=== PATIENT | female | born 1980 | race Caucasian/White ===

== ENCOUNTER 2016-08-10 18:19 | Inpatient (IN) | payer MEDICARE, MEDICAID ==
[~2016-08-10] VITALS: Ht 167.6 cm; Wt 157.0 kg
[~2016-08-10 18:19] MED LIST: ACET325T14 PO; ALPR0.25 PO; ASPI-621 PO; CARV12.543 PO; CARV25TA12 PO; FURO-92 PO; GLYB2.5T2 PO; GLYB5TAB3 PO; GUAI177L4 PO; HYDR-3240 PO; IBUP800T PO; LACT1CAP4 PO; LAMO150T3 PO; LISI40TA PO; PREN1TAB69 PO; SERT50TA PO; TOPI100T24 PO
[2016-08-10 19:40] VITALS: BP 146/93
[2016-08-10] MEDS ORDERED: LACTATED RINGERS 1,000 ML IV SCH (20:30)
[2016-08-10] MEDS: LACTATED RINGERS 1,000 ML IV SCH (20:30)
[2016-08-10] MEDS ORDERED: MIDAZOLAM 1 MG/ML, 2ML ONE (21:07)
[2016-08-10] MEDS ORDERED: FENTANYL PF 250 MCG/5ML ONE (21:07)
[2016-08-10] MEDS ORDERED: OXYTOCIN 10 UNITS/ML, 1ML ONE (21:29)
[2016-08-10] MEDS ORDERED: MISOPROSTOL 200 MCG TABLET ONE ×2 (21:29→23:04)
[2016-08-10] MEDS ORDERED: METHYLERGONOVINE 0.2 MG/ML IM ONE (21:30)
[2016-08-10] MEDS ORDERED: SILVER NITRATE STICK TP ONE ×2 (21:30→23:03)
[2016-08-10] MEDS ORDERED: LIDOCAINE 1%-EPI 1:100K, 50ML ONE (21:30)
[2016-08-10 21:34] LABS: HEMOGLOBIN 11.3 g/dL (11.7-16.4)
[2016-08-10 21:47] LABS: ASPARTATE AMINO TRANSFERASE 16 U/L (15-37); BLOOD UREA NITROGEN 13 mg/dL (7-18)
[2016-08-10] MEDS ORDERED: MEPERIDINE/PF 25MG/0.5ML IVPush PRN (22:30)
[2016-08-10] MEDS ORDERED: HYDROcodone/APAP 7.5-325MG/15ML UDC PO PRN (22:30)
[2016-08-10] MEDS ORDERED: hydrALAzine 20 MG/ML, 1ML IV PRN (22:30)
[2016-08-10] MEDS ORDERED: FENTANYL PF 100 MCG/2ML IV PRN (22:30)
[2016-08-10] MEDS ORDERED: OXYcodone 5 MG/5 ML ORAL.SOL UDC PO PRN (22:30)
[2016-08-10] MEDS ORDERED: MIDAZOLAM 1 MG/ML, 2ML IV PRN (22:30)
[2016-08-10] MEDS ORDERED: LABETALOL 5MG/ML, 20ML IV PRN (22:30)
[2016-08-10] MEDS ORDERED: ONDANSETRON 2MG/ML, 2ML IVPush PRN (22:30)
[2016-08-10] MEDS ORDERED: ACETAMINOPHEN 325 MG TABLET PO PRN (22:30)
[2016-08-10] MEDS ORDERED: KETOROLAC 30 MG/1 ML IV PRN (22:30)
[2016-08-10] MEDS ORDERED: HYDROmorphone 1 MG/ML, 1ML IV PRN (22:30)
[2016-08-10] MEDS ORDERED: EPHEDRINE 50 MG/ML, 1ML IVPush PRN (22:30)
[2016-08-10] MEDS ORDERED: PROMETHAZINE 25 MG/ML, 1ML IV PRN (22:30)
[2016-08-10] MEDS ORDERED: MISOPROSTOL 200 MCG TABLET VG ONE (23:06)
[2016-08-10] MEDS ORDERED: OXYcodone 5 MG/5 ML ORAL.SOL UDC ONE (23:30)
[2016-08-10] MEDS ORDERED: FENTANYL PF 100 MCG/2ML ONE (23:30)
[2016-08-11] MEDS ORDERED: ONDANSETRON 2MG/ML, 2ML IV PRN (00:30)
[2016-08-11] MEDS ORDERED: morphine SULFATE 10 MG/ML, 1ML IV PRN (00:30)
[2016-08-11] MEDS: LACTATED RINGERS 1,000 ML IV SCH ×3 (00:30→08:12)
[2016-08-11] MEDS: HYDROcodone/APAP 5/325 TABLET PO PRN ×2 (01:47→08:19)
[2016-08-11 03:09] VITALS: BP 147/62
[2016-08-11] MEDS ORDERED: HYDR-3240 PO (03:52)
[2016-08-11] MEDS ORDERED: NORE0.354 PO (03:57)
[2016-08-11] MEDS ORDERED: CARVEDILOL 25 MG TABLET PO SCH (06:00)
[2016-08-11 06:53] LABS: HEMOGLOBIN 11.4 g/dL (11.7-16.4)
[2016-08-11 08:40] VITALS: BP 133/80
[2016-08-11 10:31] VITALS: BP 134/72
== END 2016-08-11 10:20 | disposition home or self-care (01) | DRG 769 ==
LOC: 4NOR 19:44
PROVIDERS: ADMIT Student in an Organized Health Care Education/Training Program; ATTEND Student in an Organized Health Care Education/Training Program
PROC: 0UDB7ZZ Extraction of Endometrium, Via Natural or Artificial Opening (ICD-10-PCS; principal; 2016-08-11)
PROC: 10D17ZZ Extraction of Products of Conception, Retained, Via Natural or Artificial Opening (ICD-10-PCS; 2016-08-11)
DX: O72.2 Delayed and secondary postpartum hemorrhage (principal); Z68.43 Body mass index [BMI] 50.0-59.9, adult; I42.9 Cardiomyopathy, unspecified; N83.201 Unspecified ovarian cyst, right side; N83.202 Unspecified ovarian cyst, left side; N93.9 Abnormal uterine and vaginal bleeding, unspecified; I50.9 Heart failure, unspecified; F32.9 Major depressive disorder, single episode, unspecified; I11.0 Hypertensive heart disease with heart failure; E66.01 Morbid (severe) obesity due to excess calories; Z87.891 Personal history of nicotine dependence; Z82.49 Family history of ischemic heart disease and other diseases of the circulatory system; Z83.3 Family history of diabetes mellitus; Z82.3 Family history of stroke; Z88.6 Allergy status to analgesic agent; Z86.32 Personal history of gestational diabetes
CPT/HCPCS: 36415; 80053; 84703; 85025; 85610; 86850; 86900; 88305; J1100; J2250; J2405; J2704; J3010; J0330; J2210; J2590

== ENCOUNTER 2016-08-16 16:11 | Inpatient (IN) | payer MEDICARE, MEDICAID ==
[~2016-08-16] VITALS: Ht 167.6 cm; Wt 154.3 kg
[~2016-08-16 16:11] MED LIST changes: +NORE0.354 PO
[2016-08-16] MEDS ORDERED: SODIUM CHLORIDE 0.9% 1,000ML IVBOLUS ONE ×2 (16:30→19:00)
[2016-08-16] MEDS ORDERED: SODIUM CHLORIDE FLUSH 10ML SYR IVF ONE (16:30)
[2016-08-16] MEDS ORDERED: ONDANSETRON 2MG/ML, 2ML IVPush ONE (16:30)
[2016-08-16] MEDS ORDERED: MORPHINE SULFATE 4 MG/ML, 1ML ONE ×2 (16:58→18:08)
[2016-08-16] MEDS ORDERED: ONDANSETRON 2MG/ML, 2ML ONE (16:58)
[2016-08-16 17:00] LABS: BLOOD UREA NITROGEN 12 mg/dL (7-18)
[2016-08-16] MEDS: MORPHINE SULFATE 4 MG/ML, 1ML IVPush PRN ×2 (17:00→18:41)
[2016-08-16 17:06] LABS: ASPARTATE AMINO TRANSFERASE 15 U/L (15-37)
[2016-08-16] MEDS ORDERED: MORPHINE SULFATE 4 MG/ML, 1ML IVPush PRN (18:00)
[2016-08-16] MEDS ORDERED: CEFTRIAXONE PMX 1GM/50ML 50 ML IVPB ONE (19:00)
[2016-08-16] MEDS ORDERED: CEFTRIAXONE PMX 1GM/50ML 50 ML ONE (19:19)
[2016-08-16 23:00] VITALS: BP 92/56
[2016-08-16 23:13] VITALS: BP 92/56
[2016-08-16] MEDS ORDERED: ACETAMINOPHEN 325 MG TABLET PO PRN (23:30)
[2016-08-16] MEDS ORDERED: ONDANSETRON ODT 4 MG PO PRN (23:30)
[2016-08-16] MEDS ORDERED: BISACODYL 10 MG SUPP PR PRN (23:30)
[2016-08-16] MEDS ORDERED: ENOXAPARIN 40 MG/0.4 ML SQ SCH (23:30)
[2016-08-16] MEDS ORDERED: LABETALOL 5MG/ML, 20ML IV PRN (23:30)
[2016-08-16] MEDS ORDERED: POLYETHYLENE GLYCOL 17 GM PACKET PO PRN (23:30)
[2016-08-16] MEDS ORDERED: TRAZODONE 50MG TABLET PO PRN (23:30)
[2016-08-16] MEDS: SODIUM CHLORIDE 0.9% 1,000 ML IV SCH (23:56)
[2016-08-16] MEDS: CEFTRIAXONE PMX 2GM/50ML 50 ML IV SCH (23:56)
[2016-08-16] MEDS: HYDROcodone/APAP 5/325 TABLET PO PRN (23:57)
[2016-08-16] MEDS: CARVEDILOL 25 MG TABLET PO SCH (23:57)
[2016-08-17 01:12] VITALS: BP 90/50
[2016-08-17 05:55] LABS: BLOOD UREA NITROGEN 12 mg/dL (7-18)
[2016-08-17 05:59] LABS: ASPARTATE AMINO TRANSFERASE 12 U/L (15-37)
[2016-08-17] MEDS: SODIUM CHLORIDE 0.9% 1,000 ML IV SCH ×3 (07:07→23:24)
[2016-08-17 08:52] VITALS: BP 107/71
[2016-08-17] MEDS: CARVEDILOL 25 MG TABLET PO SCH ×2 (08:57→20:54)
[2016-08-17] MEDS: HYDROcodone/APAP 5/325 TABLET PO PRN ×4 (09:06→22:07)
[2016-08-17] MEDS: ENOXAPARIN 30 MG/0.3 ML SQ SCH ×2 (13:25→23:25)
[2016-08-17 13:56] VITALS: BP 100/68
[2016-08-17 20:40] VITALS: BP 105/71
[2016-08-17] MEDS: CEFTRIAXONE PMX 2GM/50ML 50 ML IV SCH (23:25)
[2016-08-18 02:12] VITALS: BP 122/76
[2016-08-18 06:47] VITALS: BP 113/65
[2016-08-18] MEDS: HYDROcodone/APAP 5/325 TABLET PO PRN ×3 (08:01→21:44)
[2016-08-18] MEDS: CARVEDILOL 25 MG TABLET PO SCH ×2 (08:02→21:43)
[2016-08-18] MEDS: SODIUM CHLORIDE 0.9% 1,000 ML IV SCH ×2 (08:02→21:46)
[2016-08-18] MEDS: KETOROLAC 30 MG/1 ML IVPush PRN ×2 (12:21→19:40)
[2016-08-18] MEDS: ENOXAPARIN 30 MG/0.3 ML SQ SCH ×2 (12:21→23:47)
[2016-08-18 14:38] VITALS: BP 103/57
[2016-08-18 19:55] VITALS: BP 113/69
[2016-08-18] MEDS: DOCUSATE 100 MG CAPSULE PO PRN (21:44)
[2016-08-18] MEDS: CEFTRIAXONE PMX 2GM/50ML 50 ML IV SCH (23:47)
[2016-08-19 01:42] VITALS: BP 101/59
[2016-08-19] MEDS: HYDROcodone/APAP 5/325 TABLET PO PRN ×2 (03:01→12:39)
[2016-08-19 07:40] VITALS: BP 120/80
[2016-08-19] MEDS: DOCUSATE 100 MG CAPSULE PO PRN (07:59)
[2016-08-19] MEDS: CARVEDILOL 25 MG TABLET PO SCH (07:59)
[2016-08-19 12:20] VITALS: BP_SYST 127; BP_SYST 133; BP_DIAS 79; BP_DIAS 82
[2016-08-19] MEDS: ENOXAPARIN 30 MG/0.3 ML SQ SCH (12:40)
[2016-08-19] MEDS ORDERED: HYDR-3240 PO (12:46)
[2016-08-19] MEDS ORDERED: CEFD300C2 PO (12:46)
[2016-08-19 15:50] VITALS: BP 123/77
[2016-08-19] MEDS ORDERED: SODIUM CHLORIDE 0.9% 1,000 ML IV SCH (23:06)
== END 2016-08-19 16:30 | disposition home or self-care (01) | DRG 872 ==
LOC: ED 18:04 → EDIP 20:55 → 4NOR 22:58 → DCLOUNGE 08-19 16:03
PROVIDERS: ADMIT Internal Medicine; ATTEND Internal Medicine
PROC: 0T9B70Z Drainage of Bladder with Drainage Device, Via Natural or Artificial Opening (ICD-10-PCS; principal; 2016-08-16)
DX: A41.9 Sepsis, unspecified organism (principal); N12 Tubulo-interstitial nephritis, not specified as acute or chronic; I50.22 Chronic systolic (congestive) heart failure; Z68.43 Body mass index [BMI] 50.0-59.9, adult; E66.01 Morbid (severe) obesity due to excess calories; D25.9 Leiomyoma of uterus, unspecified; F32.9 Major depressive disorder, single episode, unspecified; I11.0 Hypertensive heart disease with heart failure; B96.20 Unspecified Escherichia coli [E. coli] as the cause of diseases classified elsewhere; N83.201 Unspecified ovarian cyst, right side; N88.8 Other specified noninflammatory disorders of cervix uteri; Z86.32 Personal history of gestational diabetes; Z87.440 Personal history of urinary (tract) infections; Z87.891 Personal history of nicotine dependence; Z90.89 Acquired absence of other organs; Z88.6 Allergy status to analgesic agent; Z82.49 Family history of ischemic heart disease and other diseases of the circulatory system
CPT/HCPCS: 36415; 76830; 80053; 81001; 83605; 84145; 85025; 87040; 87077; 87086; 87186; 96361; 96365; 96375; 96376; J0696; J1650; J1885; J2405; J7030